=== PATIENT | female | born 1980 | race Caucasian/White ===

== ENCOUNTER 2025-07-26 08:40 | Emergency (ER) | payer OTHER ==
[~2025-07-26] VITALS: Ht 172.7 cm; Wt 62.3 kg
[2025-07-26 08:45] VITALS: BP 146/91; TEMP 97.8
[2025-07-26] MEDS ORDERED: IBUPROFEN 600 MG TABLET ONE (09:19)
[2025-07-26] MEDS ORDERED: CYCLOBENZAPRINE 10 MG TABLET ONE (09:19)
[2025-07-26] MEDS ORDERED: LIDOCAINE 5% (PATCH) 1 EA PATCH TP ONE (09:19)
[2025-07-26] MEDS: LIDOCAINE 5% (PATCH) 1 EA PATCH TP STA (09:29)
[2025-07-26] MEDS: CYCLOBENZAPRINE 10 MG TABLET PO ONE (09:29)
[2025-07-26] MEDS: IBUPROFEN 600 MG TABLET PO ONE (09:30)
[2025-07-26] MEDS ORDERED: NITR100C6 PO (09:42)
[2025-07-26] MEDS ORDERED: LIDO30AD10 TP (09:42)
[2025-07-26] MEDS ORDERED: CYCL5TAB PO (09:42)
[2025-07-26] MEDS ORDERED: IBUP-1955 PO (09:42)
[2025-07-26 09:48] VITALS: O2SAT 98
[2025-07-26 10:35] LABS: APPEARANCE,URINE CLEAR (CLEAR)
[2025-07-26 10:36] LABS: ADD URINE CULTURE YES; BLOOD, URINE TRACE Ery/uL (NEGATIVE); LEUKOCYTE ESTERASE ,URINE LARGE (NEGATIVE); NITRITE, URINE POSITIVE (NEGATIVE); SQUAMOUS EPITHELIAL CELL,UR Few /HPF (None Seen); UGLUCOSE NEGATIVE (NEGATIVE)
== END 2025-07-26 09:56 | disposition home or self-care (01) ==
LOC: ER 08:48
DX: S13.4XXA Sprain of ligaments of cervical spine, initial encounter (principal); I10 Essential (primary) hypertension; F17.200 Nicotine dependence, unspecified, uncomplicated; Z88.0 Allergy status to penicillin; X58.XXXA Exposure to other specified factors, initial encounter; Y93.89 Activity, other specified; Y92.89 Other specified places as the place of occurrence of the external cause; Y99.9 Unspecified external cause status
CPT/HCPCS: 81001